=== PATIENT | male | born 2000 | race Caucasian/White ===

== ENCOUNTER 2023-01-01 17:01 | Emergency (ER) | payer OTHER ==
[~2023-01-01] VITALS: Ht 188 cm; Wt 83.9 kg
[2023-01-01 17:04] VITALS: BP 132/80
--- NOTE | 2023-01-01 17:11 | NUR ---
PT AMB TO BED
--- NOTE | 2023-01-01 17:18 | NUR ---
X-Ray at bedside.
[2023-01-01] MEDS ORDERED: IBUP-2213 PO (17:33)
--- NOTE | 2023-01-01 17:51 | NUR ---
ULNAR GUTTER SPLINT APPLIED. DEMETRI WRAP X 1
[2023-01-01 18:18] VITALS: BP 130/76
--- NOTE | 2023-01-01 18:18 | NUR ---
Patient discharged with v/s stable. Written and verbal after care instructions given. Patient alert, oriented and verbalized understanding of instructions. Ambulatory with steady gait. All questions addressed prior to discharge. ID band removed. Patient advised to follow up with PMD. Rx of Ibuprofen given. Opportunity to ask questions provided and answered. WORK NOTE HANDED TO PATIENT.
== END 2023-01-01 18:18 | disposition home or self-care (01) ==
LOC: MED 17:01
DX: S62.396A Other fracture of fifth metacarpal bone, right hand, initial encounter for closed fracture (principal); J45.909 Unspecified asthma, uncomplicated; Z79.899 Other long term (current) drug therapy; W22.8XXA Striking against or struck by other objects, initial encounter; Y93.89 Activity, other specified; Y92.89 Other specified places as the place of occurrence of the external cause; Y99.8 Other external cause status
CPT/HCPCS: 29125; 73130; 99283; Q0092

== ENCOUNTER 2023-01-11 11:48 | Emergency (ER) | payer OTHER ==
[~2023-01-11] VITALS: Ht 188 cm; Wt 86.2 kg
[~2023-01-11 11:48] MED LIST: IBUP-2213 PO
[2023-01-11 11:58] VITALS: BP 149/74
--- NOTE | 2023-01-11 12:12 | NUR ---
22 y/o male bib self, pt states splint on right hand/wrist feels loose and would like it rewrapped. pmh: denies nka
--- NOTE | 2023-01-11 12:40 | NUR ---
Patient discharged with v/s stable. Written and verbal after care instructions given and explained. Patient verbalized understanding. Ambulatory with steady gait. All questions addressed prior to discharge. Advised to follow up with PMD.
[2023-01-11 12:41] VITALS: BP 121/69
--- NOTE | 2023-01-11 12:48 | NUR ---
1245 PT DRESSED W/ NEW ULNAR GUTTER SPLINT TO RIGHT HAND. SPLINT WAS THEN WRAPPED W/ DEMETRI WRAP. +CMS
== END 2023-01-11 12:40 | disposition home or self-care (01) ==
LOC: MED 11:48
DX: S62.308D Unspecified fracture of other metacarpal bone, subsequent encounter for fracture with routine healing (principal); J45.909 Unspecified asthma, uncomplicated; Z48.00 Encounter for change or removal of nonsurgical wound dressing; X58.XXXD Exposure to other specified factors, subsequent encounter
CPT/HCPCS: 99282

== ENCOUNTER → 2023-01-18 09:03 | Emergency (ER) | payer OTHER ==
--- NOTE | 2023-01-18 09:07 | NUR ---
CALLED X 1. NO SHOW. Addendum: 01/18/23 at 0937 by [facility] PATIENT LEFT WITHOUT BEING SEEN BY . NO FURTHER CARE PROVIDED FOR PATIENT.
--- NOTE | 2023-01-18 09:20 | NUR ---
CALLED X 2. NO SHOW.
--- NOTE | 2023-01-18 09:34 | NUR ---
CALLEDX3. NO SHOW.
--- NOTE | 2023-01-18 09:36 | NUR ---
CALLED [phone]. NO ANSWERING.
== END | disposition left against medical advice (07) ==
LOC: MED 09:03
DX: Z00.00 Encounter for general adult medical examination without abnormal findings (principal); Z53.21 Procedure and treatment not carried out due to patient leaving prior to being seen by health care provider

== ENCOUNTER 2023-09-25 12:52 | Emergency (ER) | payer MEDICAID, OTHER ==
[~2023-09-25] VITALS: Ht 188 cm; Wt 79.4 kg
[2023-09-25 13:03] VITALS: BP 148/80; PULSE 89; RESP 18; TEMP 97.5; O2SAT 99
[2023-09-25] MEDS ORDERED: ALBUTEROL SULFATE/IPRATROPIU 3 ML SOL IH ONE (13:10)
[2023-09-25] MEDS ORDERED: ALBU0.0912 IH (13:14)
[2023-09-25 13:27] VITALS: PULSE 95; RESP 18; O2SAT 93
[2023-09-25 13:42] VITALS: BP 138/80; PULSE 89; RESP 18; TEMP 98; O2SAT 96
== END 2023-09-25 13:42 | disposition home or self-care (01) ==
LOC: MED 12:52
DX: J45.901 Unspecified asthma with (acute) exacerbation (principal); Z79.899 Other long term (current) drug therapy; Z79.1 Long term (current) use of non-steroidal anti-inflammatories (NSAID)
CPT/HCPCS: 94640; 99283

== ENCOUNTER 2023-10-09 18:32 | Emergency (ER) | payer MEDICAID ==
[~2023-10-09] VITALS: Ht 188 cm; Wt 87.7 kg
[~2023-10-09 18:32] MED LIST changes: +ALBU0.0912 IH
[2023-10-09 18:40] VITALS: BP 128/78; PULSE 84; RESP 20; TEMP 98.1; O2SAT 97
[2023-10-09] MEDS ORDERED: ALBUTEROL SULFATE/IPRATROPIU 3 ML SOL IH ONE (18:45)
[2023-10-09] MEDS ORDERED: methylPREDNISolone SS 125 MG/2 ML VIAL IM ONE (18:45)
[2023-10-09 19:35] VITALS: PULSE 71; RESP 18; O2SAT 98
[2023-10-09] MEDS ORDERED: ALBU0.0912 INH (21:18)
[2023-10-09] MEDS ORDERED: PRED20TA5 PO (21:18)
[2023-10-09 21:29] VITALS: BP 128/78; PULSE 71; RESP 18; TEMP 98.1; O2SAT 98
== END 2023-10-09 21:29 | disposition home or self-care (01) ==
LOC: MED 18:32
DX: J45.901 Unspecified asthma with (acute) exacerbation (principal); Z79.899 Other long term (current) drug therapy; Z79.1 Long term (current) use of non-steroidal anti-inflammatories (NSAID)
CPT/HCPCS: 94640; 96372; 99283; J2930